=== PATIENT | female | born 1945 | race Asian ===

== ENCOUNTER 2018-01-01 09:10 | Emergency (ER) | payer MEDICARE, OTHER ==
[2018-01-01] MEDS ORDERED: HYDRALAZINE HCL INJ/PF 20 MG/1 ML SDV IV ONE (09:43)
--- NOTE | 2018-01-01 09:45 | ER Document Report ---
ED General - General Mode of Arrival: Medic Information source: Patient TRAVEL OUTSIDE OF THE [place] IN LAST 30 DAYS: No <ARLINE CERVANTES - Last Filed: 01/01/18 10:08> <ZABRINA CHAVIRA - Last Filed: 01/01/18 14:22> - General Chief Complaint: High Blood Pressure Stated Complaint: NAUSEA Time Seen by Provider: 01/01/18 09:36 Notes: Patient is a 72 year old female presenting to the emergency department complaining of nausea, dizziness, headache, fatigue and blurry vision onset this morning around 0430. Patient states over the last week she has been doing a lot of yard work and eating a lot of junk and salty food. She states this morning when she woke up around 0430 she felt dizzy and had a headache and proceeded to lay back down until 0600. Patient states she checked her blood pressure and found it to be 207/102 and decided to call the EMS. She states on her way to the emergency department she started to feel better further stating she feels fine at bedside. EMS reports a systolic pressure of 183 prior to arrival to the emergency department. (ARLINE CERVANTES) - Related Data Allergies/Adverse Reactions: No Known Allergies Allergy (Verified 03/27/16 15:47) Past Medical History - General Information source: Patient - Social History Smoking Status: Never Smoker Cigarette use (# per day): No Chew tobacco use (# tins/day): No Frequency of alcohol use: None Family History: Reviewed & Not Pertinent - Past Medical History Cardiac Medical History: Reports: Hx Hypercholesterolemia, Hx Hypertension Endocrine Medical History: Reports: Hx Diabetes Mellitus Type 2 Past Surgical History: Reports: Hx Breast Surgery - Cyst removal, Hx Orthopedic Surgery <ARLINE CERVANTES - Last Filed: 01/01/18 10:08> Review of Systems - Review of Systems Constitutional: See HPI EENT: See HPI, Blurred vision Cardiovascular: See HPI, Dizziness Respiratory: No symptoms reported Gastrointestinal: See HPI, Nausea Genitourinary: No symptoms reported Female Genitourinary: No symptoms reported Musculoskeletal: No symptoms reported Skin: No symptoms reported Hematologic/Lymphatic: No symptoms reported Neurological/Psychological: See HPI, Headaches -: Yes All other systems reviewed and negative <ARLINE CERVANTES - Last Filed: 01/01/18 10:08> Physical Exam - General General appearance: Appears well, Alert, Other - blood pressure of 200/97 at bedside In distress: None - HEENT Head: Normocephalic, Atraumatic Eyes: Normal Conjunctiva: Normal Extraocular movements intact: Yes Pupils: PERRL Neck: Normal. No: Carotid bruit - Respiratory Respiratory status: No respiratory distress Chest status: Nontender Breath sounds: Normal Chest palpation: Normal - Cardiovascular Rhythm: Regular Heart sounds: Normal auscultation Murmur: No Friction rub: No Gallop: None auscultated - Abdominal Inspection: Normal Distension: No distension Bowel sounds: Normal Tenderness: Nontender Organomegaly: No organomegaly - Back Back: Normal - Extremities General upper extremity: Normal ROM General lower extremity: Normal ROM - Neurological Neuro grossly intact: Yes Cognition: Normal Orientation: AAOx4 [place] Coma Scale Eye Opening: Spontaneous [place] Coma Scale Verbal: Oriented [place] Coma Scale Motor: Obeys Commands [place] Coma Scale Total: 15 Speech: Normal - Psychological Associated symptoms: Normal affect, Normal mood - Skin Skin Temperature: Warm Skin Moisture: Dry Skin Color: Normal <ARLINE CERVANTES - Last Filed: 01/01/18 10:08> - Vital signs Vitals: Pulse Ox 99 01/01/18 09:17 Course - Laboratory Result Diagrams: 01/01/18 09:20 01/01/18 09:20 <ARLINE CERVANTES - Last Filed: 01/01/18 10:08> - Laboratory Result Diagrams: 01/01/18 09:20 01/01/18 09:20 - EKG Interpretation by Ms EKG shows normal: Sinus rhythm, [place], Intervals, QRS Complexes, ST-T Waves Rate: Normal - 63 Rhythm: NSR <ZABRINA CHAVIRA - Last Filed: 01/01/18 14:22> - Re-evaluation Re-evalutation: 01/01/18 10:36 After the hydralazine 20 mg IV, the blood pressures come down to 156/83. Patient has become extremely anxious, stating she does not feel good and feels bad all over. She says she has tightness and pressure in her left posterior lateral neck near the skull. She is actually becoming diaphoretic. There is no real nystagmus noted with this dizziness. We will try a small dose of Ativan and see how that affects her sudden onset of what appears to be extreme anxiety. 01/01/18 11:19 Patient is quite relaxed now. She states she feels much better and feels like her normal self. Her blood pressure is 119/62, her reports her normal blood pressures about 130 systolic. He states he thinks maybe she needs to take a little Ativan sometimes. He is a retired family practice doctor. 01/01/18 14:18 Blood pressure is now come up to 136/75 and she is quite anxious to go home. ( ZABRINA CHAVIRA) - Vital Signs Vital signs: Temp Pulse Resp BP Pulse Ox 61 18 123/66 95 01/01/18 09:20 01/01/18 12:31 01/01/18 12:31 01/01/18 12:31 - Laboratory Laboratory results interpreted by me: 01/01/18 09:20 Sodium 146.2 H Glucose 117 H Discharge <ARLINE CERVANTES - Last Filed: 01/01/18 10:08> <ZABRINA CHAVIRA - Last Filed: 01/01/18 14:22> - Discharge Clinical Impression: Dizziness, Anxiety High blood pressure Qualifiers: Hypertension type: essential hypertension Qualified Code(s): I10 - Essential ( primary) hypertension Condition: Stable Disposition: HOME, SELF-CARE Additional Instructions: Anxiety: The physician feels that some of your health problems are being caused by anxiety. Anxiety affects your health in many ways. Anxiety alone can cause palpitations, sweats, chest pains, abdominal pains, shortness of breath, and headaches. It contributes to ulcer disease, high blood pressure, irritable bowel syndrome, and has been shown to cause flare-ups of many other diseases. Anxiety is not a simple disorder to treat. If the anxiety is due to recent life stresses, you may simply need time to "work through" the changes. If the anxiety is due to an underlying unhappiness with yourself or due to psychiatric disturbance, professional help will be needed. Your physician can refer you for further help if needed. Anti-anxiety medication is occasionally given if the stress is acute or if you are having trouble sleeping. Chronic or frequent use of these medications is not a good idea because the body becomes reliant on it, preventing you from dealing with life's normal stresses. It is difficult to tell how much of the elevated blood pressure was due to anxiety. It is difficult to tell how much of the anxiety may have been related to the dizzy sensation. Your blood pressure came down nicely with the single dose of hydralazine and then actually went a little too low after the dose of Ativan. The blood pressure came back up to a normal range for you after some IV fluids. You will be prescribed a short course of Ativan for anxiety as it seemed to work well today. Try taking meclizine for the dizziness if he continues to be a problem. Follow-up with Dr. Schaffer tomorrow if not feeling better. RETURN TO THE EMERGENCY ROOM IF ANY NEW OR WORSENING SYMPTOMS. Prescriptions: Lorazepam [Ativan 0.5 mg Tablet] 0.5 mg PO Q6 #10 tab Referrals: CASTRO SCHAFFER MD [Primary Care Provider] - Follow up as needed Scribe Attestation: 01/01/18 10:47 I personally performed the services described in the documentation, reviewed and edited the documentation which was dictated to the scribe in my presence, and it accurately records my words and actions. (ZABRINA CHAVIRA) Scribe Documentation - Scribe Written by Keila:: Keila Rosales, 01/01/2018 09:59 acting as scribe for :: Rosy <ARLINE CERVANTES - Last Filed: 01/01/18 10:08>
[2018-01-01 10:05] LABS: ABSOLUTE EOSINOPHILS # (AUTO) 0.2 10^3/uL (0.0-0.6); ABSOLUTE LYMPHOCYTES (AUTO) 1.7 10^3/uL (0.5-4.7); ABSOLUTE MONOCYTES (AUTO) 0.5 10^3/uL (0.1-1.4); ABSOLUTE NEUT (AUTO) 2.7 10^3/uL (1.7-8.2); BASOPHILS % (AUTO) 0.7 % (0-2); EOSINOPHILS % (AUTO) 3.9 % (0-6); HEMATOCRIT 38.8 % (36.0-47.0); HEMOGLOBIN 13.2 g/dL (12.0-15.5); MEAN CORPUSCULAR HGB CONC 34.2 g/dL (32.0-36.0); MEAN CORPUSCULAR VOLUME 94 fl (80-97); MONOCYTES % (AUTO) 9.4 % (3-13); PLATELET COUNT 220 10^3/uL (150-450); RED BLOOD COUNT 4.14 10^6/uL (3.72-5.28); RED CELL DISTRIBUTION WIDTH 12.5 % (11.5-14.0); TOTAL CELLS COUNTED % (AUTO) 100 %; WHITE BLOOD COUNT 5.1 10^3/uL (4.0-10.5)
[2018-01-01 10:13] LABS: ALANINE AMINOTRANSFERASE 31 U/L (9-52); ALBUMIN 4.5 g/dL (3.5-5.0); ALKALINE PHOSPHATASE 51 U/L (38-126); ANION GAP 10 (5-19); ASPARTATE AMINO TRANSFERASE 19 U/L (14-36); BILIRUBIN,DIRECT 0.2 mg/dL (0.0-0.4); BILIRUBIN,TOTAL 0.3 mg/dL (0.2-1.3); BLOOD UREA NITROGEN 13 mg/dL (7-20); CALCIUM 9.8 mg/dL (8.4-10.2); CARBON DIOXIDE 30 mmol/L (22-30); CHLORIDE 106 mmol/L (98-107); CREATINE KINASE 119 U/L (30-135); GLUCOSE 117 mg/dL (75-110); POTASSIUM 3.8 mmol/L (3.6-5.0); SODIUM 146.2 mmol/L (137-145); TOTAL PROTEIN 7.4 g/dL (6.3-8.2)
[2018-01-01] MEDS ORDERED: NORMAL SALINE 1000 ML 1,000 ML IV ONE (10:13)
[2018-01-01 10:20] LABS: APPEARANCE,URINE CLEAR; BILIRUBIN,URINE NEGATIVE (NEGATIVE); COLOR,URINE STRAW; GLUCOSE, URINE NEGATIVE (NEGATIVE); KETONES,URINE NEGATIVE (NEGATIVE); LEUKOCYTE ESTERASE,URINE NEGATIVE (NEGATIVE); NITRITE,URINE NEGATIVE (NEGATIVE); PROTEIN,URINE NEGATIVE (NEGATIVE); URINE SPECIFIC GRAVITY 1.006; UROBILINOGEN,URINE NEGATIVE mg/dL (<2.0)
[2018-01-01] MEDS ORDERED: LORAZEPAM INJ 2 MG/1 ML VIAL IV ONE (10:36)
[2018-01-01] MEDS ORDERED: DEXTROSE 5%-LACTATED RINGERS 1,000 ML IV ONE (12:25)
[2018-01-01 14:32] VITALS: BP 136/75
--- NOTE | 2018-01-01 15:49 | EKG REPORT ---
SEVERITY:- ABNORMAL ECG - SINUS RHYTHM NONSPECIFIC ST-T CHANGES, DIFFUSE, UNCHANGED FROM 03/27/16. : Confirmed by: Elder Ortiz MD 01-Jan-2018 15:48:56
== END 2018-01-01 14:33 | disposition home or self-care (01) ==
LOC: ER 09:10
DX: R42 Dizziness and giddiness (principal); F41.9 Anxiety disorder, unspecified; I10 Essential (primary) hypertension; R11.0 Nausea; R51 Headache; R53.83 Other fatigue; H53.8 Other visual disturbances; E78.00 Pure hypercholesterolemia, unspecified; E11.9 Type 2 diabetes mellitus without complications
CPT/HCPCS: 93005; 99284; 96361; 96374; 96375; 36415; 82550; 83735; 85025; 80053; 81001; 84484; 93010; J0360; J2060; J7030

== ENCOUNTER 2018-02-02 17:26 | Emergency (ER) | payer MEDICARE, OTHER ==
[2018-02-02] MEDS ORDERED: ASPIRIN 81 MG TABLET, CHEWABLE PO ONE (17:35)
[2018-02-02 17:59] LABS: ABSOLUTE EOSINOPHILS # (AUTO) 0.2 10^3/uL (0.0-0.6); ABSOLUTE LYMPHOCYTES (AUTO) 1.7 10^3/uL (0.5-4.7); ABSOLUTE MONOCYTES (AUTO) 0.5 10^3/uL (0.1-1.4); ABSOLUTE NEUT (AUTO) 2.6 10^3/uL (1.7-8.2); BASOPHILS % (AUTO) 0.5 % (0-2); EOSINOPHILS % (AUTO) 3.1 % (0-6); HEMATOCRIT 36.8 % (36.0-47.0); HEMOGLOBIN 12.8 g/dL (12.0-15.5); LYMPHOCYTES % (AUTO) 34.3 % (13-45); MEAN CORPUSCULAR HEMOGLOBIN 32.6 pg (27.0-33.4); MEAN CORPUSCULAR HGB CONC 34.8 g/dL (32.0-36.0); MEAN CORPUSCULAR VOLUME 94 fl (80-97); MONOCYTES % (AUTO) 9.3 % (3-13); PLATELET COUNT 250 10^3/uL (150-450); RED BLOOD COUNT 3.93 10^6/uL (3.72-5.28); RED CELL DISTRIBUTION WIDTH 12.8 % (11.5-14.0); SEGMENTED NEUTROPHILS % (AUTO) 52.8 % (42-78); TOTAL CELLS COUNTED % (AUTO) 100 %
--- NOTE | 2018-02-02 18:04 | RADIOLOGY REPORT (SQ) ---
EXAM DESCRIPTION: CHEST SINGLE VIEW COMPLETED DATE/TIME: 02/02/2018 5:50 pm REASON FOR STUDY: HTN COMPARISON: 03/27/2016 EXAM PARAMETERS: NUMBER OF VIEWS: One view. TECHNIQUE: Single frontal radiographic view of the chest acquired. RADIATION DOSE: NA LIMITATIONS: None. FINDINGS: LUNGS AND PLEURA: No acute opacities, masses or pneumothorax. No pleural effusion. MEDIASTINUM AND HILAR STRUCTURES: Stable. HEART AND VASCULAR STRUCTURES: Stable. BONES: No acute findings. HARDWARE: None in the chest. OTHER: No other significant finding. IMPRESSION: NO ACUTE RADIOGRAPHIC FINDING IN THE CHEST. TECHNICAL DOCUMENTATION: JOB ID: [id number] [place]-72 2010 [employer]- All Rights Reserved Reading location - IP/workstation name: [email or web address]
[2018-02-02] MEDS ORDERED: CLONIDINE HCL 0.1 MG TABLET PO ONE (18:16)
[2018-02-02 18:18] LABS: ALANINE AMINOTRANSFERASE 44 U/L (9-52); ALBUMIN 4.8 g/dL (3.5-5.0); ALKALINE PHOSPHATASE 51 U/L (38-126); ANION GAP 12 (5-19); ASPARTATE AMINO TRANSFERASE 23 U/L (14-36); BILIRUBIN,DIRECT 0.2 mg/dL (0.0-0.4); BILIRUBIN,TOTAL 0.4 mg/dL (0.2-1.3); BLOOD UREA NITROGEN 9 mg/dL (7-20); CALCIUM 10.1 mg/dL (8.4-10.2); CARBON DIOXIDE 30 mmol/L (22-30); CHLORIDE 99 mmol/L (98-107); CREATINE KINASE 124 U/L (30-135); GLUCOSE 119 mg/dL (75-110); POTASSIUM 3.8 mmol/L (3.6-5.0); SODIUM 140.8 mmol/L (137-145); TOTAL PROTEIN 7.8 g/dL (6.3-8.2)
--- NOTE | 2018-02-02 18:21 | ER Document Report ---
ED General - General Chief Complaint: High Blood Pressure Stated Complaint: BLOOD PRESSURE ISSUES Time Seen by Provider: 02/02/18 18:03 Information source: Patient TRAVEL OUTSIDE OF THE [place] IN LAST 30 DAYS: No - HPI Notes: 72-year-old female with history of hypertension presents with elevated blood pressure, anxiety, and blurry vision today. She was seen in the emergency department last month for the same. She states she woke up and her blood pressure was normal. She took her normal blood pressure medication and then did Mervat for an hour. She ate watermelon for breakfast. She then took her vitamins on an empty stomach with only a banana for lunch. Shortly after, she began feeling weak with blurry vision and found her blood pressure was in the 200s systolic. She states this has happened in the past when taking vitamins on an empty stomach. She took an extra dose of blood pressure medication and then an Ativan and called 911. She is now feeling much better. Blurry vision has resolved. She denies headache. No chest pain or shortness of breath. She admits to being under a large amount of recent stress as her had a stroke 6 years ago and does not remember her. - Related Data Allergies/Adverse Reactions: No Known Allergies Allergy (Verified 02/02/18 17:49) Past Medical History - Social History Smoking Status: Unknown if Ever Smoked Family History: Reviewed & Not Pertinent - Past Medical History Cardiac Medical History: Reports: Hx Hypercholesterolemia, Hx Hypertension Endocrine Medical History: Reports: Hx Diabetes Mellitus Type 2 Renal/ Medical History: Denies: Hx Peritoneal Dialysis Past Surgical History: Reports: Hx Breast Surgery - Cyst removal, Hx Orthopedic Surgery Review of Systems - Review of Systems Notes: REVIEW OF SYSTEMS: CONSTITUTIONAL: -fevers, -chills EENT: -eye pain, -difficulty swallowing, -nasal congestion, + blurry vision CARDIOVASCULAR: -chest pain, -syncope. RESPIRATORY: -cough, -SOB GASTROINTESTINAL: -abdominal pain, -nausea, -vomiting, -diarrhea GENITOURINARY: -dysuria, -hematuria MUSCULOSKELETAL: -back pain, -neck pain SKIN: -rash or skin lesions. HEMATOLOGIC: -easy bruising or bleeding. LYMPHATIC: -swollen, enlarged glands. NEUROLOGICAL: -altered mental status or loss of consciousness, -headache, - neurologic symptoms PSYCHIATRIC: +anxiety, -depression. Physical Exam - Vital signs Vitals: Pulse Ox 100 02/02/18 17:35 Interpretation: Hypertensive - Notes Notes: PHYSICAL EXAMINATION: GENERAL: Well-appearing, well-nourished and in no acute distress. HEAD: Atraumatic, normocephalic. EYES: Pupils equal round and reactive to light, extraocular movements intact, conjunctiva are normal. ENT: nares patent, oropharynx clear without exudates. Moist mucous membranes. NECK: Normal range of motion, supple without lymphadenopathy LUNGS: Breath sounds clear to auscultation bilaterally and equal. No wheezes rales or rhonchi. HEART: Regular rate and rhythm, no chest wall tenderness ABDOMEN: Soft, nontender, normoactive bowel sounds. No guarding, no rebound. No masses appreciated. EXTREMITIES: Normal range of motion, no pitting or edema. No cyanosis. NEUROLOGICAL: Cranial nerves grossly intact. Normal speech, normal gait. Normal sensory and motor exams. PSYCH: Normal mood, normal affect. SKIN: Warm, Dry, normal turgor, no rashes or lesions noted. Course - Re-evaluation Re-evalutation: 02/02/18 18:20 Very pleasant 72-year-old female without any active symptoms. Blood pressure still elevated. We will give clonidine and reassess 02/02/18 19:06 Blood pressure improved. Remains asymptomatic. Workup unremarkable. We will discharge home. Given return precautions. - Vital Signs Vital signs: Temp Pulse Resp BP Pulse Ox 97.8 F 16 172/81 H 96 02/02/18 17:49 02/02/18 19:01 02/02/18 19:01 02/02/18 19:01 - Laboratory Result Diagrams: 02/02/18 17:48 02/02/18 17:48 Laboratory results interpreted by me: 02/02/18 17:48 Glucose 119 H Discharge - Discharge Clinical Impression: Hypertension Qualifiers: Hypertension type: unspecified Qualified Code(s): I10 - Essential (primary) hypertension Condition: Good Disposition: HOME, SELF-CARE Instructions: High Blood Pressure ([facility]) Additional Instructions: Return for any worsening or concerning symptoms. Monitor blood pressure. Forms: Elevated Blood Pressure Referrals: CASTRO FIGUEROA MD [Primary Care Provider] - Follow up as needed
[2018-02-02 18:27] LABS: CREATINE KINASE MB 1.02 ng/mL (<4.55)
[2018-02-02 18:31] LABS: TROPONIN I < 0.012 ng/mL
[2018-02-02 19:05] VITALS: BP 172/81
--- NOTE | 2018-02-02 22:52 | EKG REPORT ---
SEVERITY:- BORDERLINE ECG - SINUS RHYTHM BORDERLINE T WAVE ABNORMALITIES : Confirmed by: Louie Jones 02-Feb-2018 22:50:56
== END 2018-02-02 19:20 | disposition home or self-care (01) ==
LOC: ER 17:26
DX: I10 Essential (primary) hypertension (principal); F41.9 Anxiety disorder, unspecified; H53.8 Other visual disturbances; R53.1 Weakness; E11.9 Type 2 diabetes mellitus without complications; Z79.899 Other long term (current) drug therapy
CPT/HCPCS: 93005; 99284; 36415; 82553; 82550; 85025; 80053; 84484; 71045; 93010; A9270 ×2

== ENCOUNTER 2018-06-13 00:21 | Emergency (ER) | payer MEDICARE, OTHER ==
[2018-06-13 01:15] LABS: ABSOLUTE EOSINOPHILS # (AUTO) 0.2 10^3/uL (0.0-0.6); ABSOLUTE LYMPHOCYTES (AUTO) 1.9 10^3/uL (0.5-4.7); ABSOLUTE MONOCYTES (AUTO) 0.9 10^3/uL (0.1-1.4); ABSOLUTE NEUT (AUTO) 3.3 10^3/uL (1.7-8.2); BASOPHILS % (AUTO) 0.6 % (0-2); EOSINOPHILS % (AUTO) 3.8 % (0-6); HEMOGLOBIN 11.8 g/dL (12.0-15.5); LYMPHOCYTES % (AUTO) 29.1 % (13-45); MEAN CORPUSCULAR HEMOGLOBIN 32.8 pg (27.0-33.4); MEAN CORPUSCULAR HGB CONC 34.6 g/dL (32.0-36.0); MEAN CORPUSCULAR VOLUME 95 fl (80-97); MONOCYTES % (AUTO) 13.9 % (3-13); PLATELET COUNT 263 10^3/uL (150-450); RED BLOOD COUNT 3.58 10^6/uL (3.72-5.28); RED CELL DISTRIBUTION WIDTH 12.2 % (11.5-14.0); SEGMENTED NEUTROPHILS % (AUTO) 52.6 % (42-78); TOTAL CELLS COUNTED % (AUTO) 100 %; WHITE BLOOD COUNT 6.4 10^3/uL (4.0-10.5)
[2018-06-13 01:47] LABS: ALANINE AMINOTRANSFERASE 23 U/L (9-52); ALBUMIN 4.1 g/dL (3.5-5.0); ALKALINE PHOSPHATASE 65 U/L (38-126); ANION GAP 13 (5-19); ASPARTATE AMINO TRANSFERASE 15 U/L (14-36); BILIRUBIN,DIRECT 0.1 mg/dL (0.0-0.4); BILIRUBIN,TOTAL 0.3 mg/dL (0.2-1.3); BLOOD UREA NITROGEN 16 mg/dL (7-20); CALCIUM 9.9 mg/dL (8.4-10.2); CARBON DIOXIDE 28 mmol/L (22-30); CHLORIDE 102 mmol/L (98-107); GLUCOSE 166 mg/dL (75-110); POTASSIUM 4.2 mmol/L (3.6-5.0)
[2018-06-13 02:06] VITALS: BP 121/62
--- NOTE | 2018-06-13 02:26 | ER Document Report ---
ED General - General Chief Complaint: Headache Stated Complaint: SORE THROAT,HEADACHE Time Seen by Provider: 06/13/18 01:05 Mode of Arrival: Ambulatory Information source: Patient - This is a 72-year-old female Notes: This is a 72-year-old female with a history of hypertension, diabetes and dyslipidemia presents to the emergency room with elevated blood pressure. She is does state that she has had a recent URI and was coughing. She states she did not feel right and took her blood pressure and it was elevated. She denies any weakness, slurred speech, chest pain or abdominal pain. TRAVEL OUTSIDE OF THE [place] IN LAST 30 DAYS: No - HPI Onset: Just prior to arrival Onset/Duration: Gradual Quality of pain: No pain Severity: None Pain Level: Denies Associated symptoms: denies: Chills, Fever, Shortness of breath Exacerbated by: Denies Relieved by: Denies Similar symptoms previously: No Recently seen / treated by doctor: No - Related Data Allergies/Adverse Reactions: No Known Allergies Allergy (Verified 02/02/18 17:49) Past Medical History - General Information source: Patient - Social History Smoking Status: Never Smoker Cigarette use (# per day): No Chew tobacco use (# tins/day): No Frequency of alcohol use: None Drug Abuse: None Lives with: Family Family History: Reviewed & Not Pertinent Patient has suicidal ideation: No Patient has homicidal ideation: No - Past Medical History Cardiac Medical History: Reports: Hx Hypercholesterolemia, Hx Hypertension Endocrine Medical History: Reports: Hx Diabetes Mellitus Type 2 Renal/ Medical History: Denies: Hx Peritoneal Dialysis Past Surgical History: Reports: Hx Breast Surgery - Cyst removal, Hx Orthopedic Surgery Review of Systems - Review of Systems Constitutional: denies: Chills, Fever EENT: No symptoms reported Cardiovascular: See HPI. denies: Chest pain, Palpitations, Heart racing, Syncope Respiratory: No symptoms reported Gastrointestinal: No symptoms reported Genitourinary: No symptoms reported Female Genitourinary: No symptoms reported Musculoskeletal: No symptoms reported Skin: No symptoms reported Hematologic/Lymphatic: No symptoms reported Neurological/Psychological: No symptoms reported Physical Exam - Vital signs Vitals: Temp Pulse Resp BP Pulse Ox 98.9 F 74 18 185/90 H 98 06/13/18 00:21 06/13/18 00:21 06/13/18 00:21 06/13/18 00:21 06/13/18 00:21 Notes: Physical exam: GENERAL: Patient is alert and oriented x3, no acute distress HEAD: Atraumatic, normocephalic. EYES: Pupils equal round and reactive to light, extraocular movements intact, sclera anicteric, conjunctiva are normal. ENT: TMs normal, nares patent, oropharynx clear without exudates. Moist mucous membranes. NECK: Normal range of motion, supple without obvious mass or JVD. LUNGS: Breath sounds clear to auscultation bilaterally and equal. No wheezes rales or rhonchi. HEART: Regular rate and rhythm without murmurs, rubs or gallops. ABDOMEN: Soft, normoactive bowel sounds. No tenderness to palpation. No guarding, no rebound. No masses appreciated. EXTREMITIES: Normal range of motion, no pitting or edema. No clubbing or cyanosis. NEUROLOGICAL: Cranial nerves II through XII grossly intact. Normal speech, moving all extremities. PSYCH: Normal mood, normal affect. SKIN: Warm, Dry, normal turgor, no rashes or lesions noted. Course - Re-evaluation Re-evalutation: 06/13/18 02:35 Patient is feeling much better. Blood pressure has come down. Plan will be for her to follow-up with her primary care doctor. - Vital Signs Vital signs: Temp Pulse Resp BP Pulse Ox 98.9 F 74 16 121/62 94 06/13/18 00:21 06/13/18 00:54 06/13/18 02:01 06/13/18 02:01 06/13/18 02:01 - Laboratory Result Diagrams: 06/13/18 00:43 06/13/18 00:43 Laboratory results interpreted by me: 06/13/18 06/13/18 00:43 00:43 RBC 3.58 L Hgb 11.8 L Hct 34.0 L Monocytes % 13.9 H Glucose 166 H Discharge - Discharge Clinical Impression: Hypertension Condition: Stable Additional Instructions: I would continue your current medicines. Follow-up with your primary care doctor as planned. Into the emergency room for any turns that your blood pressure is getting worse. Return to the ER for any chest pain, shortness of breath, numbness or weakness. Referrals: CASTRO FIGUEROA MD [Primary Care Provider] - Follow up in 3-5 days
== END 2018-06-13 02:52 | disposition home or self-care (01) ==
LOC: ER 00:21
DX: I10 Essential (primary) hypertension (principal); R51 Headache; J02.9 Acute pharyngitis, unspecified; E78.5 Hyperlipidemia, unspecified; E11.9 Type 2 diabetes mellitus without complications
CPT/HCPCS: 36415; 80053; 85025; 99284